=== PATIENT | female | born 1990 | race Caucasian/White ===

== ENCOUNTER → 2023-07-20 | Outpatient (CLI) | payer BC ==
[2023-07-20 17:05] LABS: C Reactive Protein <0.30 mg/dL (0.00-0.80)
[2023-07-20 17:11] LABS: ALT 25 U/L (8-44); AST 21 U/L (13-35); Albumin 4.5 d/dL (3.8-4.9); Alkaline Phosphatase 79 U/L (41-126); BUN/Creat Ratio 9.14 Ratio (12.00-20.00); Blood Urea Nitrogen 6.4 mg/dL (9.0-27.0); Calcium 9.8 mg/dL (8.7-10.3); Carbon Dioxide 23.8 mmol/L (21.6-31.8); Chloride 104 mmol/L (96-109); Glucose 88 mg/dL (70-110); Potassium 5.5 mmol/L (3.5-5.5); Sodium 139 mmol/L (135-145); Total Bilirubin 0.4 mg/dL (0.3-1.2); Total Protein 7.5 d/dL (6.2-8.2)
[2023-07-20 17:44] LABS: DNA Double-Stranded Negative (Negative)
[2023-07-23 06:34] LABS: Methylmalonic Acid 0.19 umol/L (<0.40)
[2023-07-23 10:32] LABS: HIV-1 RNA Not detected (Not detected); HIV-1 RNA, Quant <20 Copies/mL (<20); LOG HIV Copies/mL <1.30 (<1.30)
== END | disposition home or self-care (01) ==
LOC: LABWHC1 09:19
PROVIDERS: ATTEND Psychiatry & Neurology Neurology
DX: Z00.00 Encounter for general adult medical examination without abnormal findings (principal); G35 Multiple sclerosis
CPT/HCPCS: 36415; 80053; 82607; 83036; 83921; 84207; 84425; 84443; 85652; 86038; 86140; 86160; 86162; 86225; 86618; 86780; 87536

== ENCOUNTER → 2023-07-30 | Outpatient (CLI) | payer BC ==
--- NOTE | 2023-07-30 16:06 | MR ---
EXAMINATION TYPE: MR brain wo/w con DATE OF EXAM: 07/30/2023 COMPARISON: None HISTORY: Tingling in legs, stiffness, muscle spasms CONTRAST: Performed utilizing 8 mL intravenous Gadavist gadolinium contrast. TECHNIQUE: Multiplanar, multiecho imaging on a 3.0 Shelbi magnet is performed through the brain. Stud y is performed within 24 hours of arrival to the hospital. The craniovertebral junction is normal. The pituitary is normal. Optic chiasm is visualized appears normal. Diffusion-weighted imaging is performed. No abnormal hyperintensity is present to suggest an acute i ntracranial infarct or acute ischemic change. There are scattered punctate areas of hyperintensity on T2 and Inversion Recovery weighted sequences which are non-specific but can be related to microvascular ischemic changes. Ventricles and sulci are appropriate for the patient age. Following contrast administration no abnormal enhancement is evident. IMPRESSION: 1. No acute intracranial process. Postcontrast.
== END | disposition home or self-care (01) ==
LOC: RADMRIMAIN 13:37
PROVIDERS: ATTEND Psychiatry & Neurology Neurology
DX: M62.838 Other muscle spasm (principal); R20.2 Paresthesia of skin
CPT/HCPCS: 70553; A9585

== ENCOUNTER 2023-08-27 12:46 | Emergency (ER) | payer BC ==
[2023-08-27 13:02] VITALS: BP 133/71; PULSE 95; RESP 16; TEMP 98.1
--- NOTE | 2023-08-27 13:08 | ED ---
General Adult HPI - General Chief complaint: Psychiatric Symptoms Stated complaint: Mental Health Time Seen by Provider: 08/27/23 12:52 Source: patient, RN notes reviewed Mode of arrival: ambulatory Limitations: no limitations - History of Present Illness Initial comments: Patient is a pleasant 33-year-old female presenting to the emergency department with concern for anxiety. Patient states it is been more severe over the past week. Patient took a single dose of Lexapro and that causes her to have a panic attack. Patient has not been sleeping well. Patient has not been eating well. Patient does have some mild depression. Patient does have thoughts that she does not wake up. No suicidal plan. No homicidal thoughts. No hallucinations. - Related Data Allergies Allergy/AdvReac Type Severity Reaction Status Date / Time sucralfate [From Carafate] Allergy Unknown Verified 08/27/23 12:52 Review of Systems ROS Statement: Those systems with pertinent positive or pertinent negative responses have been documented in the HPI. ROS Other: All systems not noted in ROS Statement are negative. Constitutional: Denies: fever Eyes: Denies: eye pain ENT: Denies: ear pain Respiratory: Denies: cough, dyspnea Cardiovascular: Denies: chest pain Endocrine: Denies: fatigue Gastrointestinal: Denies: abdominal pain Psychiatric: Reports: as per HPI, anxiety. Denies: auditory hallucinations, visual hallucinations, homicidal thoughts Past Medical History Past Medical History: No Reported History History of Any Multi-Drug Resistant Organisms: None Reported Past Surgical History: Cholecystectomy Past Psychological History: Anxiety Smoking Status: Never smoker Past Alcohol Use History: None Reported Past Drug Use History: None Reported General Exam Limitations: no limitations General appearance: alert, in no apparent distress Head exam: Present: normocephalic Eye exam: Present: normal appearance Neck exam: Present: normal inspection Respiratory exam: Present: normal lung sounds bilaterally Cardiovascular Exam: Present: regular rate, normal rhythm GI/Abdominal exam: Present: soft. Absent: tenderness Extremities exam: Present: normal inspection Neurological exam: Present: alert Psychiatric exam: Present: anxious Skin exam: Present: normal color Course Vital Signs 08/27/23 12:49 Temperature 98.1 F Pulse Rate 95 Respiratory 16 Rate Blood Pressure 133/71 O2 Sat by Pulse 98 Oximetry Medical Decision Making - Medical Decision Making Was pt. sent in by a medical professional or institution (, PA, ADMINISTRATION PHYSICIAN, urgent care, hospital, or [facility]...) When possible be specific @ -No Did you speak to anyone other than the patient for history (EMS, parent, family, police, friend...)? What history was obtained from this source @ -Sister's present health right history including patient. Reluctant to start her medication as prescribed to her. Did you review nursing and triage notes (agree or disagree)? Why? @ -I reviewed and agree with nursing and triage notes Were old charts reviewed (outside hosp., previous admission, EMS record, old EKG, old radiological studies, urgent care reports/EKG's, [facility] records)? Report findings @ -No old charts were reviewed Differential Diagnosis (chest pain, altered mental status, abdominal pain women, abdominal pain men, vaginal bleeding, weakness, fever, dyspnea, syncope, headache, dizziness, GI bleed, back pain, seizure, CVA, palpatations, mental health, musculoskeletal)? @ -Differential Mental Health Depression, anxiety, bipolar, psychosis, schizophrenia, borderline personality, situational depression, adjustment disorder, behavioral disorder, brain tumor, malingering, substance abuse, encephalopathy, medication reaction, dementia, hypothyroidism, degenerative neurologic disorder, lupus.... This is not meant to be all-inclusive list EKG interpreted by me (3pts min.). @ X-rays interpreted by me (1pt min.). @ -None done CT interpreted by me (1pt min.). @ -None done U/S interpreted by me (1pt. min.). @ -None done What testing was considered but not performed or refused? (CT, X-rays, U/S, labs)? Why? @ -None What meds were considered but not given or refused? Why? @ -None Did you discuss the management of the patient with other professionals (professionals i.e. , PA, ADMINISTRATION PHYSICIAN, lab, RT, psych nurse, drug abuse social worker, medical management specialist, teacher, correction officer head, human services case manager)? Give summary @ -Case discussed with mental health worker with plans for discharge Was smoking cessation discussed for >3mins.? @ -No Was critical care preformed (if so, how long)? @ -No Were there social determinants of health that impacted care today? How? (Homelessness, low income, unemployed, alcoholism, drug addiction, transportation, low edu. Level, literacy, decrease access to med. care, alf, rehab)? @ -No Was there de-escalation of care discussed even if they declined (Discuss DNR or withdrawal of care, Hospice)? DNR status @ -No What co-morbidities impacted this encounter? (DM, HTN, Smoking, COPD, CAD, Cancer, CVA, ARF, Chemo, Hep., AIDS, mental health diagnosis, sleep apnea, morbid obesity)? @ -None Was patient admitted / discharged? Hospital course, mention meds given and route, prescriptions, significant lab abnormalities, going to OR and other pertinent info. @ -Patient reevaluated. Patient and family updated. Patient will be discharged for follow-up. Undiagnosed new problem with uncertain prognosis? @ -No Drug Therapy requiring intensive monitoring for toxicity (Heparin, Nitro, Insulin, Cardizem)? @ -No Were any procedures done? @ -No Diagnosis/symptom? @ -Anxiety Acute, or Chronic, or Acute on Chronic? @ -Acute on chronic Uncomplicated (without systemic symptoms) or Complicated (systemic symptoms)? @ -default Side effects of treatment? @ -No Exacerbation, Progression, or Severe Exacerbation? @ -No Poses a threat to life or bodily function? How? (Chest pain, [place], [place], pneumonia, PE, COPD, DKA, ARF, appy, cholecystitis, CVA, Diverticulitis, Homicidal, Suicidal, threat to staff... and all critical care pts) @ -No - Lab Data Lab Results 08/27/23 Range/Units 14:27 Urine Opiates Screen Not Detected (NotDetected) Ur Oxycodone Screen Not Detected (NotDetected) Urine Methadone Screen Not Detected (NotDetected) Ur Propoxyphene Screen Not Detected (NotDetected) Ur Barbiturates Screen Not Detected (NotDetected) U Tricyclic Antidepress Not Detected (NotDetected) Ur Phencyclidine Scrn Not Detected (NotDetected) Ur Amphetamines Screen Not Detected (NotDetected) U Methamphetamines Scrn Not Detected (NotDetected) U Benzodiazepines Scrn Detected H (NotDetected) Urine Cocaine Screen Not Detected (NotDetected) U Marijuana (THC) Screen Not Detected (NotDetected) Disposition Clinical Impression: Acute anxiety Disposition: HOME SELF-CARE Condition: Stable Instructions (If sedation given, give patient instructions): Generalized Anxiety Disorder (ED) Additional Instructions: Please do follow-up with your primary care physician in the next day or 2 for recheck. Please also follow-up with mental health services as directed. Return for thoughts of self-harm, worsening symptoms or other concerns. Is patient prescribed a controlled substance at d/c from ED?: No Referrals: Ant Gutierrez MD [REFERRING] - 1-2 days Time of Disposition: 15:22
[2023-08-27 15:05] LABS: Amphetamine Screen,Urine Not Detected (NotDetected); Barbiturate Screen,Urine Not Detected (NotDetected); Benzodiazepines Screen,Urine Detected (NotDetected); Cocaine Screen,Urine Not Detected (NotDetected); Methadone Screen, Urine Not Detected (NotDetected); Opiate Screen,Urine Not Detected (NotDetected); Oxycodone Screen, Urine Not Detected (NotDetected); Phencyclidine Screen,Urine Not Detected (NotDetected); Tricyclic Antidepressant,Urine Not Detected (NotDetected); Urn Cannabinoid Scrn Not Detected (NotDetected)
[2023-08-27] MEDS ORDERED: LORazepam 1 MG TAB PO STA ×2 (15:08→15:22)
== END 2023-08-27 15:33 | disposition home or self-care (01) ==
LOC: EC 12:46
DX: F41.0 Panic disorder [episodic paroxysmal anxiety] (principal); Z86.59 Personal history of other mental and behavioral disorders; Z90.49 Acquired absence of other specified parts of digestive tract
CPT/HCPCS: 80306; 82075; 99284

== ENCOUNTER 2023-08-29 13:10 | Inpatient (IN) | payer BC ==
--- NOTE | 2023-08-29 16:09 | ED ---
Psych HPI - General Chief Complaint: Psychiatric Symptoms Stated Complaint: alt mental state Time Seen by Provider: 08/29/23 15:30 Source: patient, family, RN notes reviewed, old records reviewed Mode of arrival: ambulatory Limitations: no limitations - History of Present Illness Initial Comments: This is a 33-year-old female presents today. Patient presents today for evaluation psychiatric illness. Patient denies drugs or alcohol today. To the emergency department for psychiatric evaluation patient also admits to severe anxiety MD Complaint: suicidal ideation, feels depressed, other (Anxiety) Associated Psychiatric Symptoms: depression, suicidal ideation History of same: Yes Quality: constant Improves With: none Worsens With: none Context: significant life stressor Associated Symptoms: denies other symptoms Treatments Prior to Arrival: placed on mental health hold If Self Harm: admits thoughts of self harm - Related Data Allergies Allergy/AdvReac Type Severity Reaction Status Date / Time sucralfate [From Carafate] Allergy Unknown Verified 08/27/23 12:52 Review of Systems ROS Statement: Those systems with pertinent positive or pertinent negative responses have been documented in the HPI. ROS Other: All systems not noted in ROS Statement are negative. Past Medical History Past Medical History: No Reported History History of Any Multi-Drug Resistant Organisms: None Reported Past Surgical History: Cholecystectomy Past Psychological History: Anxiety Smoking Status: Never smoker Past Alcohol Use History: None Reported Past Drug Use History: None Reported General Exam General appearance: alert, in no apparent distress Head exam: Present: atraumatic, normocephalic, normal inspection Eye exam: Present: normal appearance, PERRL, EOMI. Absent: scleral icterus, conjunctival injection, periorbital swelling ENT exam: Present: normal exam, mucous membranes moist Neck exam: Present: normal inspection. Absent: tenderness, meningismus, lymphadenopathy Respiratory exam: Present: normal lung sounds bilaterally. Absent: respiratory distress, wheezes, rales, rhonchi, stridor Cardiovascular Exam: Present: regular rate, normal rhythm, normal heart sounds. Absent: systolic murmur, diastolic murmur, rubs, gallop, clicks GI/Abdominal exam: Present: soft, normal bowel sounds. Absent: distended, tenderness, guarding, rebound, rigid Extremities exam: Present: normal inspection, full ROM, normal capillary refill. Absent: tenderness, pedal edema, joint swelling, calf tenderness Back exam: Present: normal inspection Neurological exam: Present: alert, oriented X3, CN II-XII intact Psychiatric exam: Present: normal affect, normal mood Skin exam: Present: warm, dry, intact, normal color. Absent: rash Course Vital Signs 08/29/23 13:21 Temperature 98 F Pulse Rate 100 Respiratory 20 Rate Blood Pressure 132/102 O2 Sat by Pulse 98 Oximetry - Reevaluation(s) Reevaluation #1: 08/29/23 19:24 Medical records reviewed Reevaluation #2: 08/29/23 19:24 Medical clear for psychiatric evaluation Medical Decision Making - Medical Decision Making 33 female who was seen in [facility], patient be transferred for inpatient psychiatric evaluation and treatment - Lab Data Lab Results 08/29/23 Range/Units 17:02 Urine Opiates Screen Not Detected (NotDetected) Ur Oxycodone Screen Not Detected (NotDetected) Urine Methadone Screen Not Detected (NotDetected) Ur Propoxyphene Screen Not Detected (NotDetected) Ur Barbiturates Screen Not Detected (NotDetected) U Tricyclic Antidepress Not Detected (NotDetected) Ur Phencyclidine Scrn Not Detected (NotDetected) Ur Amphetamines Screen Not Detected (NotDetected) U Methamphetamines Scrn Not Detected (NotDetected) U Benzodiazepines Scrn Detected H (NotDetected) Urine Cocaine Screen Not Detected (NotDetected) U Marijuana (THC) Screen Not Detected (NotDetected) Disposition Clinical Impression: Acute anxiety, Depression, Suicidal ideation Disposition: TRANSFER TO PSYCH HOSP/UNIT Condition: Fair Is patient prescribed a controlled substance at d/c from ED?: No Referrals: Nonstaff,Physician [Primary Care Provider] - 1-2 days
[2023-08-29 17:39] LABS: Amphetamine Screen,Urine Not Detected (NotDetected); Barbiturate Screen,Urine Not Detected (NotDetected); Benzodiazepines Screen,Urine Detected (NotDetected); Cocaine Screen,Urine Not Detected (NotDetected); Methadone Screen, Urine Not Detected (NotDetected); Opiate Screen,Urine Not Detected (NotDetected); Oxycodone Screen, Urine Not Detected (NotDetected); Phencyclidine Screen,Urine Not Detected (NotDetected); Tricyclic Antidepressant,Urine Not Detected (NotDetected); Urn Cannabinoid Scrn Not Detected (NotDetected)
[2023-08-29] MEDS ORDERED: LORazepam 1 MG TAB PO STA (21:13)
[2023-08-29 23:06] LABS: Appearance,Urine Cloudy (Clear); Bacteria,Urine Occasional /hpf; Bilirubin,Urine Negative (Negative); Blood,Urine Negative (Negative); Color,Urine Light Yellow; Glucose,Urine (UA) Negative (Negative); Ketones,Urine Negative (Negative); Leukocyte Esterase,Urine Negative (Negative); Mucus,Urine Many /hpf; Nitrite,Urine Negative (Negative); Protein,Urine Negative (Negative); RBC,Urine 1 /hpf (0-5); Specific Gravity,Urine 1.012 (1.001-1.035); Squamous Epithelial Cell,Urine 5 /hpf (0-4); Urobilinogen,Urine <2.0 mg/dL (<2.0); WBC,Urine 2 /hpf (0-5)
[2023-08-30 00:01] LABS: Basophils # (A) 0.1 k/uL (0-0.2); Basophils % (A) 1 %; Eosinophils # (A) 0.2 k/uL (0-0.7); Eosinophils % (A) 2 %; HCT 45.4 % (34.0-46.0); HGB 15.8 gm/dL (11.4-16.0); Lymphocytes # (A) 3.3 k/uL (1.0-4.8); Lymphocytes % (A) 30 %; MCHC 34.8 g/dL (31.0-37.0); MCV 92.1 fL (80.0-100.0); Mean Platelet Volume 8.1; Monocytes # (A) 0.6 k/uL (0-1.0); Monocytes % (A) 6 %; Neutrophils # (A) 6.6 k/uL (1.3-7.7); Neutrophils % (A) 60 %; Platelet Count 334 k/uL (150-450); RBC 4.93 m/uL (3.80-5.40); RDW 12.3 % (11.5-15.5)
[2023-08-30 00:16] LABS: ALT 15 U/L (4-34); AST 19 U/L (14-36); African American GFR (CKD) >90 (>60 ml/min/1.73 sqM); Albumin 4.5 g/dL (3.5-5.0); Alkaline Phosphatase 52 U/L (38-126); Anion Gap 12 mmol/L; Blood Urea Nitrogen 6 mg/dL (7-17); Calcium 9.7 mg/dL (8.4-10.2); Carbon Dioxide 23 mmol/L (22-30); Chloride 104 mmol/L (98-107); Glucose 112 mg/dL (74-99); Non-African American GFR(CKD) >90 (>60 ml/min/1.73 sqM); Potassium 3.8 mmol/L (3.5-5.1); Sodium 139 mmol/L (137-145); Total Bilirubin 0.7 mg/dL (0.2-1.3); Total Protein 7.8 g/dL (6.3-8.2)
[2023-08-30] MEDS ORDERED: MAGNESIUM HYDROXIDE 2,400 MG/30 ML CUP PO PRN (12:59)
[2023-08-30] MEDS ORDERED: haloperidoL 5 MG TAB PO PRN (13:14)
[2023-08-30] MEDS ORDERED: LORazepam 1 MG TAB PO PRN (13:14)
[2023-08-30] MEDS ORDERED: HALOPERIDOL LACTATE 5 MG/ML 1 ML VIAL IM PRN (13:14)
--- NOTE | 2023-08-31 01:44 | P.CONS ---
History of Present Illness - Reason for Consult Consult date: 08/31/23 - History of Present Illness The patient is a 33-year-old female with a PMH of anxiety who had presented to the emergency room with complaints of worsening her anxiety and panic disorder. She was admitted to the mental health unit where she was seen and evaluated while accompanied by mental health unit FRANSICO Armenta. She reported feeling anxious and having some palpitations but denied any additional complaints at the time of interview. She denied tobacco, alcohol, or substance use. Denied experiencing chest discomfort, shortness of breath, nausea, vomiting, diaphoresis, or dizziness. Laboratory evaluation in the emergency room was reviewed with WBC count 11.0, glucose 112, UA, and unremarkable urine toxicology. Review of systems: Pertinent positives and negatives as discussed in HPI, a complete review of systems was performed and all other systems are negative. Physical examination: General: non toxic, no distress, appears at stated age, normal weight Derm: no unusual rashes/lesions, no unusual ecchymoses, warm, dry Head: atraumatic, normocephalic, symmetric Eyes: EOMI, no lid lag, anicteric sclera ENT: Nose and ears atraumatic, no thrush, no pharyngeal erythema Neck: trachea midline, supple Mouth: no lip lesion, mucus membranes moist Cardiovascular: S1S2 reg, no murmur, no edema Lungs: CTA bilateral, no rhonchi, no rales , no accessory muscle use Abdominal: soft, nontender to palpation, no guarding Ext: no gross muscle atrophy, no contractures, Neuro: No gross focal neuro deficits noted Psych: Alert, oriented, appropriate affect Assessment: Palpitations Anxiety Imaging: None performed Data Review: Laboratory evaluation in the emergency room was reviewed with WBC count 11.0, glucose 112, UA, and unremarkable urine toxicology. Plan: Check TSH levels Obtain EKG Defer management of anxiety to primary psychiatry service Thank you for allowing us to participate in the care of this patient. We will follow peripherally. Do not hesitate to contact us with questions. Someone can be reached from the [facility] hospitalist group at all hours of the day at [phone]. Past Medical History Past Medical History: GERD/Reflux Additional Past Medical History / Comment(s): tinnitis, stress fractures bilateral feet (2021, 2022), History of Any Multi-Drug Resistant Organisms: None Reported Past Surgical History: Cholecystectomy Additional Past Surgical History / Comment(s): laparoscopic cholecystectomy Past Anesthesia/Blood Transfusion Reactions: No Reported Reaction Past Psychological History: Anxiety Smoking Status: Never smoker Past Alcohol Use History: None Reported Past Drug Use History: None Reported - Past Family History Mother History Unknown: Yes Medications and Allergies Home Medications Medication Instructions Recorded Confirmed Type ALPRAZolam [Xanax] 0.25 mg PO TID PRN 08/29/23 08/30/23 History buPROPion SR [Wellbutrin SR] 100 mg PO BID 08/29/23 08/29/23 History Allergies Allergy/AdvReac Type Severity Reaction Status Date / Time sucralfate [From Carafate] Allergy Intermediate Nausea Verified 08/30/23 15:16 Physical Exam Vitals: Vital Signs Temp Pulse Pulse Resp BP BP Pulse Ox 08/30/23 13:55 98.5 F 98 17 121/77 96 08/30/23 13:42 97.9 F 99 18 117/77 97 Intake and Output 08/30/23 08/30/23 08/31/23 14:59 22:59 06:59 Other: Weight 73.845 kg Results CBC & Chem 7: 08/29/23 23:54 08/29/23 23:54
[2023-08-31] MEDS: NICOTINE 14MG/24HR PATCH TRANSDERM SCH (08:20)
--- NOTE | 2023-08-31 12:02 | P.HP ---
Psychiatric H&P - . H&P Date: 08/31/23 History & Physical: Allergies Allergy/AdvReac Type Severity Reaction Status Date / Time sucralfate [From Carafate] Allergy Intermediate Nausea Verified 08/30/23 15:16 Vital Signs Temp 97.4 F L 08/31/23 06:19 Pulse 88 08/31/23 06:19 Resp 14 08/31/23 06:19 BP 119/78 08/31/23 06:19 Pulse Ox 96 08/30/23 13:55 FiO2 Intake & Output 08/30/23 08/31/23 08/31/23 18:59 06:59 18:59 Weight 73.845 kg Laboratory Last Values WBC 11.0 k/uL (3.8-10.6) H 08/29/23 23:54 RBC 4.93 m/uL (3.80-5.40) 08/29/23 23:54 Hgb 15.8 gm/dL (11.4-16.0) 08/29/23 23:54 Hct 45.4 % (34.0-46.0) 08/29/23 23:54 MCV 92.1 fL (80.0-100.0) 08/29/23 23:54 MCH 32.0 pg (25.0-35.0) 08/29/23 23:54 MCHC 34.8 g/dL (31.0-37.0) 08/29/23 23:54 RDW 12.3 % (11.5-15.5) 08/29/23 23:54 Plt Count 334 k/uL (150-450) 08/29/23 23:54 MPV 8.1 08/29/23 23:54 Neutrophils % 60 % 08/29/23 23:54 Lymphocytes % 30 % 08/29/23 23:54 Monocytes % 6 % 08/29/23 23:54 Eosinophils % 2 % 08/29/23 23:54 Basophils % 1 % 08/29/23 23:54 Neutrophils # 6.6 k/uL (1.3-7.7) 08/29/23 23:54 Lymphocytes # 3.3 k/uL (1.0-4.8) 08/29/23 23:54 Monocytes # 0.6 k/uL (0-1.0) 08/29/23 23:54 Eosinophils # 0.2 k/uL (0-0.7) 08/29/23 23:54 Basophils # 0.1 k/uL (0-0.2) 08/29/23 23:54 Sodium 139 mmol/L (137-145) 08/29/23 23:54 Potassium 3.8 mmol/L (3.5-5.1) 08/29/23 23:54 Chloride 104 mmol/L (98-107) 08/29/23 23:54 Carbon Dioxide 23 mmol/L (22-30) 08/29/23 23:54 Anion Gap 12 mmol/L 08/29/23 23:54 BUN 6 mg/dL (7-17) L 08/29/23 23:54 Creatinine 0.55 mg/dL (0.52-1.04) 08/29/23 23:54 Est GFR (CKD-EPI)AfAm >90 (>60 ml/min/1.73 sqM) 08/29/23 23:54 Est GFR (CKD-EPI)NonAf >90 (>60 ml/min/1.73 sqM) 08/29/23 23:54 Glucose 112 mg/dL (74-99) H 08/29/23 23:54 Calcium 9.7 mg/dL (8.4-10.2) 08/29/23 23:54 Total Bilirubin 0.7 mg/dL (0.2-1.3) 08/29/23 23:54 AST 19 U/L (14-36) 08/29/23 23:54 ALT 15 U/L (4-34) 08/29/23 23:54 Alkaline Phosphatase 52 U/L (38-126) 08/29/23 23:54 Total Protein 7.8 g/dL (6.3-8.2) 08/29/23 23:54 Albumin 4.5 g/dL (3.5-5.0) 08/29/23 23:54 TSH 1.120 mIU/L (0.465-4.680) 08/29/23 23:54 Urine Color Light Yellow 08/29/23 17:02 Urine Appearance Cloudy (Clear) H 08/29/23 17:02 Urine pH 6.0 (5.0-8.0) 08/29/23 17:02 Ur Specific [place] 1.012 (1.001-1.035) 08/29/23 17:02 Urine Protein Negative (Negative) 08/29/23 17:02 Urine Glucose (UA) Negative (Negative) 08/29/23 17:02 Urine Ketones Negative (Negative) 08/29/23 17:02 Urine Blood Negative (Negative) 08/29/23 17:02 Urine Nitrite Negative (Negative) 08/29/23 17:02 Urine Bilirubin Negative (Negative) 08/29/23 17:02 Urine Urobilinogen <2.0 mg/dL (<2.0) 08/29/23 17:02 Ur Leukocyte Esterase Negative (Negative) 08/29/23 17:02 Urine RBC 1 /hpf (0-5) 08/29/23 17:02 Urine WBC 2 /hpf (0-5) 08/29/23 17:02 Ur Squamous Epith Cells 5 /hpf (0-4) H 08/29/23 17:02 Urine Bacteria Occasional /hpf (None) H 08/29/23 17:02 Urine Mucus Many /hpf (None) H 08/29/23 17:02 Urine HCG, Qual Not Detected (Not Detectd) 08/29/23 17:02 Urine Opiates Screen Not Detected (NotDetected) 08/29/23 17:02 Ur Oxycodone Screen Not Detected (NotDetected) 08/29/23 17:02 Urine Methadone Screen Not Detected (NotDetected) 08/29/23 17:02 Ur Propoxyphene Screen Not Detected (NotDetected) 08/29/23 17:02 Ur Barbiturates Screen Not Detected (NotDetected) 08/29/23 17:02 U Tricyclic Antidepress Not Detected (NotDetected) 08/29/23 17:02 Ur Phencyclidine Scrn Not Detected (NotDetected) 08/29/23 17:02 Ur Amphetamines Screen Not Detected (NotDetected) 08/29/23 17:02 U Methamphetamines Scrn Not Detected (NotDetected) 08/29/23 17:02 U Benzodiazepines Scrn Detected (NotDetected) H 08/29/23 17:02 Urine Cocaine Screen Not Detected (NotDetected) 08/29/23 17:02 U Marijuana (THC) Screen Not Detected (NotDetected) 08/29/23 17:02 SARS-CoV-2 (PCR) Not Detected (Not Detectd) 08/29/23 23:54 08/31/23 09:17 IDENTIFYING DATA: Patient is a 33 y/o female, lives with in a house. no children. 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 HPI: Patient presented to the hospital ED, with sister. As per EPS note, "Pt was in the ER on 08/27 for mental health reasons and sent home. Pt returned today d/t worsening anxiety. Pt has debilitating anxiety and unable to concentrate to work and starting to isolate from others besides some family supports. Pt has struggling with anxiety her whole life but after having gallbladder surgery in June is has increased greatly. She states that she is in a constant fight or flight. She has racing thoughts, unable to concentrate, not sleeping, not eating. "I don't want to be alone". She does not feel safe being alone. She states that the littlest things turn into catastrophic thoughts and she becomes obesessed and fixed that something is wrong or something is going to happen. Pt admits to having SI for the last 2 weeks and today she verbalized she had a plan to drive her car into the garage and by carbon monoxide poison. Pt has not been eating and has not slept in weeks. She does not state any recent traumas or triggers. She is constantly crying throughout the day and not able to control those emotions. Denies HI, hallucinations, or delusions. Denies use of etoh or drugs. Sister and were present during assessment and expressed concerns of pt going to harm herself if she is alone." Today, patient states she has not been able to get her anxiety under control, and yesterday was having suicidial thoughts, but is no longer feeling that way. she had a plan to park her car and inhale CO. Minimizing. She states that things have gotten worse since 2017, when she lost her step father, and in 2019 when she lost her mom. Hanging out with her sisters have been helpful. The anxiety she is feeling is giving her tightness in her chest and tingling in her arms. Claims to have always had anxiety, but it has been worse, and not manageable since she got her gallbladder removed in June. Patient states she hasn't been sleeping, and wanted to park her car in the garage, start it, and "go to sleep forever". Patient denies any current suicidal or homicidal ideations intent or plan. At this time patient denies any auditory or visual hallucinations. Patient denies any flight of ideas racing thoughts and increased in goal directed behavior. Patient denies using drugs, alcohol, cigarettes. PAST PSYCHIATRIC HISTORY: Patient states that she's had no prior admissions to a mental health unit. Patient has tried lexapro, and it did not work well, and caused a panic attack. Currently on Wellbutrin prescribed by primary care dr. Patient denies any previous psychiatric hospitalizations. [place]. Patient denies any history of suicide attempts in the past. PMH: as per ED note ALLERGIES: as per EMR CHEMICAL DEPENDENCY HISTORY: denies FAMILY PSYCHIATRIC/SUBSTANCE USE HISTORY: denies SOCIAL HISTORY: Patient was born in [place], [place], ,raised in [facility]. College Graduate, bachelors degree, denies legal issues Lives in a house with her , no children..Works for [employer]. MENTAL STATUS EXAM: General Appearance: Patient appears to be stated age is alert, Patient is of average stature. Long, dark hair, pulled pack into a bun. dressed in street clothes directable, and attempts to cooperate. Patient appears to have good hygiene and grooming. Behavior: Patient is seated without any agitated behavior. fairly cooperative. Speech: Patient's speech is fluent and nonpressured. Mood/Affect: Patient reports their mood is anxious, affect is congruent and constricted. Suicidality/Homicidality: Patient denies having any homicidal ideation intent or plan. Denies any suicidal ideations intent or plan Perceptions: Patient denies any visual hallucinations and denies any auditory hallucinations Though content/process: There is no evidence of any delusional thought content and thought process is linear and goal-directed. Minimizing. Memory and concentration: AOX3, grossly intact for the purposes of this session. Can spell "WORLD" backwards Judgment and insight: fair STRENGTHS/WEAKNESSES: strength is that patient is resilient. Weakness is that pa tient is impulsive INTELLECT: above average IMPRESSIONS: depressive disorder, unspecified Generalized anxiety disorder Suicidal ideations PLAN: -Patient is admitted under voluntary status to MHU for stabilization of psychiatric symptoms and safety. Patient has signed adult voluntary form and medication consent and is placed in patient's chart. -Medications : Will start patient on Effexor XR 37.5mg daily for mood/anxiety Trazadone 50mg qhs for sleep Visteral 50mg q8 hours prn, and willl monitor for side effects. - Haldol PRN for agitation/aggression -Patient was informed of the risks, benefits and side effects of the medication and patient verbally consented to taking the medications. Patient signed med consent form and was placed in chart. -Internal Medicine consult to perform medical evaluation and physical. -NRT -nonsmoker -SW on board for discharge planning. Encourage patient to participate in groups to work on coping skills. 08/31/23 11:59
[2023-08-31] MEDS: VENLAFAXINE HCL ER 37.5 MG CAP PO SCH (12:23)
[2023-08-31] MEDS: hydrOXYzine pamoate 25 MG CAP PO PRN ×2 (13:56→22:40)
[2023-08-31] MEDS: LORazepam 2 MG/ML INJ IM PRN (18:48)
[2023-08-31] MEDS ORDERED: traZODone HCL 50 MG TAB PO SCH (21:00)
[2023-09-01 05:51] VITALS: RESP 16
[2023-09-01] MEDS: VENLAFAXINE HCL ER 37.5 MG CAP PO SCH (09:09)
[2023-09-01] MEDS: NICOTINE 14MG/24HR PATCH TRANSDERM SCH (09:09)
[2023-09-01] MEDS: ONDANSETRON ODT 4 MG TAB PO PRN (09:11)
--- NOTE | 2023-09-01 09:56 | P.PN ---
Progress Note - Text Progress Note Date: 09/01/23 Interval History: Patient was seen today wandering the hallways and was agreeable to speak in the office. she claims that she was feeling fairly anxious yesterday, today is better. claims that her mood is mildly improving today. states that she is trying to go to some groups. appetite is still poor. she is endorsing some nausea and took Zofran for it which helped. She states that she had a difficult time falling asleep last night. States that she has been speaking with her . She continues to have a constricted affect. At this time denying any auditory or visual hallucinations. Denying any suicidal or homicidal ideations intent or plan. Mental status examination: General Appearance: Patient appears to be stated age is alert, Patient is of average stature. Long, dark hair, pulled pack into a bun. dressed in street clothes directable, and attempts to cooperate. Behavior: Patient is seated without any agitated behavior. fairly cooperative. Speech: Patient's speech is fluent and nonpressured. Mood/Affect: Patient reports their mood is anxious, improving mildly, affect is congruent and constricted my improving mildly. Suicidality/Homicidality: Patient denies having any homicidal ideation intent or plan. Denies any suicidal ideations intent or plan Perceptions: Patient denies any visual hallucinations and denies any auditory hallucinations Though content/process: There is no evidence of any delusional thought content and thought process is linear and goal-directed Memory and concentration: AOX3, grossly intact for the purposes of this session Judgment and insight: fair IMPRESSIONS: depressive disorder, unspecified Generalized anxiety disorder Suicidal ideations PLAN: -Patient is admitted under voluntary status to MHU for stabilization of psychiatric symptoms and safety. Patient has signed adult voluntary form and medication consent and is placed in patient's chart. -Medications : Continue Effexor XR 37.5mg daily for mood/anxiety increase Trazadone 100mg qhs for sleep Visteral 50mg q8 hours prn, and willl monitor for side effects. - Haldol PRN for agitation/aggression -NRT -nonsmoker -SW on board for discharge planning. Encourage patient to participate in groups to work on coping skills.
[2023-09-01] MEDS: hydrOXYzine pamoate 25 MG CAP PO PRN ×2 (14:29→21:38)
[2023-09-01] MEDS: ACETAMINOPHEN TAB 325 MG TAB PO PRN (17:17)
[2023-09-01] MEDS ORDERED: traZODone HCL 100 MG TAB PO SCH (21:00)
[2023-09-02] MEDS: LORazepam 2 MG/ML INJ IM PRN (05:14)
[2023-09-02] MEDS: hydrOXYzine pamoate 25 MG CAP PO PRN ×2 (08:55→21:18)
[2023-09-02] MEDS ORDERED: LORazepam 1 MG TAB PO PRN ×2 (08:59→10:05)
[2023-09-02] MEDS ORDERED: diphenhydrAMINE 50 MG CAP PO PRN (10:55)
--- NOTE | 2023-09-02 11:02 | P.PN ---
Progress Note - Text Progress Note Date: 09/02/23 Interval History: Patient was seen today wandering the hallways and was agreeable to speak in the office. Patient claims that she is going to groups. She states that she is doing a bit better today with regards for anxiety. States that the Effexor has been helping, we decided to increase today to 75 mg. She states that she feels more anxious after taking the trazodone and it did not help her with sleep. She is reporting some intolerance to it. He spoke about other alternatives and she was agreeable to try melatonin with Benadryl as needed. This morning she had elevated heart rate, received an EKG, adjusto writer operator reviewed it. states that she is trying to go to some groups. appetite is still poor. She states that she had a difficult time falling asleep last night. She continues to have a constricted affect. At this time denying any auditory or visual hallucinations. Denying any suicidal or homicidal ideations intent or plan. Mental status examination: General Appearance: Patient appears to be stated age is alert, Patient is of average stature. Long, dark hair, dressed in street clothes directable, and attempts to cooperate. Behavior: Patient is seated without any agitated behavior. fairly cooperative. Speech: Patient's speech is fluent and nonpressured. Mood/Affect: Patient reports their mood is anxious, improving mildly, affect is congruent and constricted my improving mildly. Suicidality/Homicidality: Patient denies having any homicidal ideation intent or plan. Denies any suicidal ideations intent or plan Perceptions: Patient denies any visual hallucinations and denies any auditory hallucinations Though content/process: There is no evidence of any delusional thought content and thought process is linear and goal-directed. discharge Memory and concentration: AOX3, grossly intact for the purposes of this session Judgment and insight: fair IMPRESSIONS: depressive disorder, unspecified Generalized anxiety disorder Suicidal ideations PLAN: -Patient is admitted under voluntary status to MHU for stabilization of psychiatric symptoms and safety. Patient has signed adult voluntary form and medication consent and is placed in patient's chart. -Medications : increase Effexor XR 75 mg daily for mood/anxiety, discontinue Trazadone due to intolerance and possible s/e, will replace with melatonin 5 mg scheduled daily at bedtime for sleep. Visteral 50mg q8 hours prn for anxiety. Added Benadryl 50 mg daily at bedtime when necessary for insomnia. We'll co nsider adding propranolol tomorrow if patient is still fairly anxious and having tachycardia. -Check EKG this morning due to tachycardia. - Haldol PRN for agitation/aggression -NRT -nonsmoker -SW on board for discharge planning. Encourage patient to participate in groups to work on coping skills. possible d/c -sun if patient continues to improve.
[2023-09-02] MEDS: VENLAFAXINE HCL ER 37.5 MG CAP PO SCH (11:10)
[2023-09-02] MEDS: VENLAFAXINE HCL ER 75 MG CAP PO SCH (11:24)
[2023-09-02] MEDS: MELATONIN 5 MG TABLET PO SCH (21:40)
[2023-09-03] MEDS: VENLAFAXINE HCL ER 75 MG CAP PO SCH (08:19)
[2023-09-03] MEDS: PROPRANOLOL 20 MG TAB PO SCH ×2 (10:36→21:08)
--- NOTE | 2023-09-03 11:12 | P.PN ---
Progress Note - Text Progress Note Date: 09/03/23 Interval History: Patient was seen today wandering the hallways and was agreeable to speak in the office. Patient claims that she is going to groups. She states that she is doing a bit better today with regards for anxiety, "medium anxious". Patient still has an elevated heart rate, received an EKG, remote mortgage underwriter reviewed it. Patient states appetite is "ok". She states that she slept well last night. She continues to have a constricted affect. Mildly improving. At this time denying any auditory or visual hallucinations. Denying any suicidal or homicidal ideations intent or plan. we spoke about starting propranolol today to help with elevated heart rate and also anxiety. Patient claims that she is agreeable to try this today. Mental status examination: General Appearance: Patient appears to be stated age is alert, Patient is of average stature. Long, dark hair, dressed in street clothes directable, and attempts to cooperate. Behavior: Patient is seated without any agitated behavior. fairly cooperative. Speech: Patient's speech is fluent and nonpressured. Mood/Affect: Patient reports their mood is anxious, improving mildly, affect is congruent and constricted my improving mildly. Suicidality/Homicidality: Patient denies having any homicidal ideation intent or plan. Denies any suicidal ideations intent or plan Perceptions: Patient denies any visual hallucinations and denies any auditory hallucinations Though content/process: There is no evidence of any delusional thought content and thought process is linear and goal-directed. Memory and concentration: AOX3, grossly intact for the purposes of this session Judgment and insight: fair, mildly improving. IMPRESSIONS: depressive disorder, unspecified Generalized anxiety disorder Suicidal ideations PLAN: -Patient is admitted under voluntary status to MHU for stabilization of psychiatric symptoms and safety. Patient has signed adult voluntary form and medication consent and is placed in patient's chart. -Medications : Effexor XR 75 mg daily for mood/anxiety. melatonin 5 mg scheduled daily at bedtime for sleep. Visteral 50mg q8 hours prn for anxiety, add Visteral 50mg qhs for sleep . propranolol 20mg bid for anxiety/tachycardia -vitals qshift - Haldol PRN for agitation/aggression -NRT -nonsmoker -SW on board for discharge planning. Encourage patient to participate in groups to work on coping skills. possible d/c tues if patient continues to improve.
[2023-09-03] MEDS: ACETAMINOPHEN TAB 325 MG TAB PO PRN (17:03)
[2023-09-03] MEDS ORDERED: hydrOXYzine pamoate 25 MG CAP PO SCH (21:00)
[2023-09-03] MEDS: MELATONIN 5 MG TABLET PO SCH (21:39)
[2023-09-04 06:30] VITALS: TEMP 98
[2023-09-04] MEDS: PROPRANOLOL 20 MG TAB PO SCH (08:18)
[2023-09-04] MEDS: VENLAFAXINE HCL ER 75 MG CAP PO SCH (08:18)
[2023-09-04 08:31] VITALS: BP 126/90; PULSE 118
[2023-09-04] MEDS: ONDANSETRON ODT 4 MG TAB PO PRN (09:16)
--- NOTE | 2023-09-04 12:01 | P.DS ---
Providers Date of admission: 08/30/23 12:57 Admission note was completed by sports book writer Hospital course: Patient presented to the hospital ED, with sister. As per EPS note, "Pt was in the ER on 08/27 for mental health reasons and sent home. Pt returned today d/t worsening anxiety. Pt has debilitating anxiety and unable to concentrate to work and starting to isolate from others besides some family supports. Pt has struggling with anxiety her whole life but after having gallbladder surgery in June is has increased greatly. She states that she is in a constant fight or flight. She has racing thoughts, unable to concentrate, not sleeping, not eating. "I don't want to be alone". She does not feel safe being alone. She s tates that the littlest things turn into catastrophic thoughts and she becomes obesessed and fixed that something is wrong or something is going to happen. Pt admits to having SI for the last 2 weeks and today she verbalized she had a plan to drive her car into the garage and by carbon monoxide poison. Pt has not been eating and has not slept in weeks. She does not state any recent traumas or triggers. She is constantly crying throughout the day and not able to control those emotions. Denies HI, hallucinations, or delusions. Denies use of etoh or drugs. Sister and were present during assessment and expressed concerns of pt going to harm herself if she is alone." Today, patient states she has not been able to get her anxiety under control, and yesterday was having suicidial thoughts, but is no longer feeling that way. she had a plan to park her car and inhale CO. Minimizing. She states that things have gotten worse since 2017, when she lost her step father, and in 2019 when she lost her mom. Hanging out with her sisters have been helpful. The anxiety she is feeling is giving her tightness in her chest and tingling in her arms. Claims to have always had anxiety, but it has been worse, and not manageable since she got her gallbladder removed in June. Patient states she hasn't been sleeping, and wanted to park her car in the garage, start it, and "go to sleep forever". Patient denies any current suicidal or homicidal ideations intent or plan. At this time patient denies any auditory or visual hallucinations. Patient denies any flight of ideas racing thoughts and increased in goal directed behavior. Patient denies using drugs, alcohol, cigarettes. Mental status exam: General Appearance: Patient appears to be stated age is alert, Patient is of average stature. Long, dark hair, pulled pack into a bun. dressed in street clothes directable, and attempts to cooperate. Patient appears to have good hygiene and grooming. Behavior: Patient is calmly seated without any agitated behavior. Speech: Patient's speech is fluent and nonpressured. Mood/Affect: Patient reports their mood is anxious, affect is congruent and constricted. improving Suicidality/Homicidality: Patient denies having any suicidal or homicidal ideation intent or plan. Perceptions: Patient denies any auditory or visual hallucinations. Though content/process: There is no evidence of any delusional thought content and thought process is linear and goal-directed. [more future oriented] Memory and concentration: AOX3, grossly intact for the purposes of this session. Can spell "WORLD" backwards correctly. Judgment and insight: fair Impression: depressive disorder, unspecified Generalized anxiety disorder Suicidal ideations Plan: -Continue with discharge today as patient has improved and stabilized psychiatrically and is not currently an imminent threat to [himself] and/or others. [Patient will remain at chronically elevated risk for harm to self and/or others due to his impulsivity and polysubstance abuse.] -Continue medications: Effexor XR 75 mg daily for mood/anxiety. melatonin 5 mg scheduled daily at bedtime for sleep. Visteral 50mg q8 hours prn for anxiety, add Visteral 50mg qhs for sleep . propranolol 20mg bid for anxiety/tachycardia -Patient was counseled on the need for medication compliance and appropriate follow-up at mental health and also primary care for medical issues. Patient verbalized understanding and agreed. -Social work to [arrange for and conduct family meeting to ensure safety upon discharge and answer any questions/concerns.] Social work also to arrange for patients follow up appointments [with [facility]] for psychiatric care along with follow up with primary care provider. -Patient counseled on abstaining from recreational drugs and marijuana and alcohol. Was informed/educated on the adverse effects on their physical and mental health. [Patient verbally agreed and understood]. [Patient was offered substance abuse treatment however declined at this time.] -Patient was instructed to return to the hospital or seek immediate medical care if their psychiatric or medical symptoms do worsen or reoccur. Allergies Allergy/AdvReac Type Severity Reaction Status Date / Time sucralfate [From Carafate] Allergy Intermediate Nausea Verified 08/30/23 15:16 Laboratory Results WBC 11.0 k/uL (3.8-10.6) H 08/29/23 23:54 RBC 4.93 m/uL (3.80-5.40) 08/29/23 23:54 Hgb 15.8 gm/dL (11.4-16.0) 08/29/23 23:54 Hct 45.4 % (34.0-46.0) 08/29/23 23:54 MCV 92.1 fL (80.0-100.0) 08/29/23 23:54 MCH 32.0 pg (25.0-35.0) 08/29/23 23:54 MCHC 34.8 g/dL (31.0-37.0) 08/29/23 23:54 RDW 12.3 % (11.5-15.5) 08/29/23 23:54 Plt Count 334 k/uL (150-450) 08/29/23 23:54 MPV 8.1 08/29/23 23:54 Neutrophils % 60 % 08/29/23 23:54 Lymphocytes % 30 % 08/29/23 23:54 Monocytes % 6 % 08/29/23 23:54 Eosinophils % 2 % 08/29/23 23:54 Basophils % 1 % 08/29/23 23:54 Neutrophils # 6.6 k/uL (1.3-7.7) 08/29/23 23:54 Lymphocytes # 3.3 k/uL (1.0-4.8) 08/29/23 23:54 Monocytes # 0.6 k/uL (0-1.0) 08/29/23 23:54 Eosinophils # 0.2 k/uL (0-0.7) 08/29/23 23:54 Basophils # 0.1 k/uL (0-0.2) 08/29/23 23:54 Sodium 139 mmol/L (137-145) 08/29/23 23:54 Potassium 3.8 mmol/L (3.5-5.1) 08/29/23 23:54 Chloride 104 mmol/L (98-107) 08/29/23 23:54 Carbon Dioxide 23 mmol/L (22-30) 08/29/23 23:54 Anion Gap 12 mmol/L 08/29/23 23:54 BUN 6 mg/dL (7-17) L 08/29/23 23:54 Creatinine 0.55 mg/dL (0.52-1.04) 08/29/23 23:54 Est GFR (CKD-EPI)AfAm >90 (>60 ml/min/1.73 sqM) 08/29/23 23:54 Est GFR (CKD-EPI)NonAf >90 (>60 ml/min/1.73 sqM) 08/29/23 23:54 Glucose 112 mg/dL (74-99) H 08/29/23 23:54 Calcium 9.7 mg/dL (8.4-10.2) 08/29/23 23:54 Total Bilirubin 0.7 mg/dL (0.2-1.3) 08/29/23 23:54 AST 19 U/L (14-36) 08/29/23 23:54 ALT 15 U/L (4-34) 08/29/23 23:54 Alkaline Phosphatase 52 U/L (38-126) 08/29/23 23:54 Total Protein 7.8 g/dL (6.3-8.2) 08/29/23 23:54 Albumin 4.5 g/dL (3.5-5.0) 08/29/23 23:54 TSH 1.120 mIU/L (0.465-4.680) 08/29/23 23:54 Urine Color Light Yellow 08/29/23 17:02 Urine Appearance Cloudy (Clear) H 08/29/23 17:02 Urine pH 6.0 (5.0-8.0) 08/29/23 17:02 Ur Specific Mobile 1.012 (1.001-1.035) 08/29/23 17:02 Urine Protein Negative (Negative) 08/29/23 17:02 Urine Glucose (UA) Negative (Negative) 08/29/23 17:02 Urine Ketones Negative (Negative) 08/29/23 17:02 Urine Blood Negative (Negative) 08/29/23 17:02 Urine Nitrite Negative (Negative) 08/29/23 17:02 Urine Bilirubin Negative (Negative) 08/29/23 17:02 Urine Urobilinogen <2.0 mg/dL (<2.0) 08/29/23 17:02 Ur Leukocyte Esterase Negative (Negative) 08/29/23 17:02 Urine RBC 1 /hpf (0-5) 08/29/23 17:02 Urine WBC 2 /hpf (0-5) 08/29/23 17:02 Ur Squamous Epith Cells 5 /hpf (0-4) H 08/29/23 17:02 Urine Bacteria Occasional /hpf (None) H 08/29/23 17:02 Urine Mucus Many /hpf (None) H 08/29/23 17:02 Urine HCG, Qual Not Detected (Not Detectd) 08/29/23 17:02 Urine Opiates Screen Not Detected (NotDetected) 08/29/23 17:02 Ur Oxycodone Screen Not Detected (NotDetected) 08/29/23 17:02 Urine Methadone Screen Not Detected (NotDetected) 08/29/23 17:02 Ur Propoxyphene Screen Not Detected (NotDetected) 08/29/23 17:02 Ur Barbiturates Screen Not Detected (NotDetected) 08/29/23 17:02 U Tricyclic Antidepress Not Detected (NotDetected) 08/29/23 17:02 Ur Phencyclidine Scrn Not Detected (NotDetected) 08/29/23 17:02 Ur Amphetamines Screen Not Detected (NotDetected) 08/29/23 17:02 U Methamphetamines Scrn Not Detected (NotDetected) 08/29/23 17:02 U Benzodiazepines Scrn Detected (NotDetected) H 08/29/23 17:02 Urine Cocaine Screen Not Detected (NotDetected) 08/29/23 17:02 U Marijuana (THC) Screen Not Detected (NotDetected) 08/29/23 17:02 SARS-CoV-2 (PCR) Not Detected (Not Detectd) 08/29/23 23:54 Vital Signs Temp 98.0 F 09/04/23 06:19 Pulse 118 H 09/04/23 08:19 Resp 16 09/04/23 06:19 BP 126/90 09/04/23 08:19 Pulse Ox 100 09/03/23 21:10 FiO2 Expected date of discharge: 09/04/23 Attending physician: Blas Jon MD Consults: 08/30/23 12:59 Consult Physician Routine Consulting Provider: [facility] Consult Reason/Comments: H&P Do you want consulting provider notified?: Yes Primary care physician: Physician Nonstaff - Discharge Diagnosis(es) (1) Depressive disorder Current Visit: Yes Status: Acute Priority: High (2) Generalized anxiety disorder Current Visit: Yes Status: Acute Priority: High (3) Suicidal ideations Current Visit: Yes Status: Acute Priority: Medium Hospital Course: Admission HPI: Admission note was completed by sports book writer " Patient is a 33 y/o female, lives with in a house. no children. 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 Patient presented to the hospital ED, with sister. As per EPS note, "Pt was in the ER on 08/27 for mental health reasons and sent home. Pt returned today d/t worsening anxiety. Pt has debilitating anxiety and unable to concentrate to work and starting to isolate from others besides some family supports. Pt has struggling with anxiety her whole life but after having gallbladder surgery in June is has increased greatly. She states that she is in a constant fight or flight. She has racing thoughts, unable to concentrate, not sleeping, not eating. "I don't want to be alone". She does not feel safe being alone. She states that the littlest things turn into catastrophic thoughts and she becomes obesessed and fixed that something is w valerio or something is going to happen. Pt admits to having SI for the last 2 weeks and today she verbalized she had a plan to drive her car into the garage and by carbon monoxide poison. Pt has not been eating and has not slept in weeks. She does not state any recent traumas or triggers. She is constantly crying throughout the day and not able to control those emotions. Denies HI, hallucinations, or delusions. Denies use of etoh or drugs. Sister and were present during assessment and expressed concerns of pt going to harm herself if she is alone."Today, patient states she has not been able to get her anxiety under control, and yesterday was having suicidial thoughts, but is no longer feeling that way. she had a plan to park her car and inhale CO. Minimizing. She states that things have gotten worse since 2018, when she lost her step father, and in 2019 when she lost her mom. Hanging out with her sisters have been helpful. The anxiety she is feeling is giving her tightness in her chest and tingling in her arms. Claims to have always had anxiety, but it has been worse, and not manageable since she got her gallbladder removed in June. Patient states she hasn't been sleeping, and wanted to park her car in the garage, start it, and "go to sleep forever". Patient denies any current suicidal or homicidal ideations intent or plan. At this time patient denies any auditory or visual hallucinations. Patient denies any flight of ideas racing thoughts and increased in goal directed behavior. Patient denies using drugs, alcohol, cigarettes. " Hospital course: Upon admission to the unit patient was directable and agreeable to commence treatment and signed adult voluntary form. Patient was initially fairly anxious while on the unit however with time in treatment got along well with other patients on the unit and followed unit protocol. Patient was compliant with the medications and denied any side effects throughout hospital course. Patient was started on Effexor XR and increased the dose of 75 mg daily for mood/anxiety, melatonin increased her dose of 10 mg daily at bedtime for sleep, Vistaril when necessary plus scheduled dose of 50 mg daily at bedtime for anxiety/sleep, propranolol increased to a dose of 30 mg twice a day for anxiety/tachycardia.. Patient spoke of her stressors and engaged in therapy both group and individual. Patient was also seen by medical team for history and physical exam. Patient had 2 EKGs completed while on the unit given patients episodes of tachycardia and high levels of anxiety. Throughout the course of the hospitalization patient gradually improved with regards to mood, anxiety, sleep and returned back to their baseline level of functioning. On the day of discharge patient denied any suicidal or homicidal ideations intent or plan denied any auditory or visual hallucinations. Patient endorsed wanting to live for her family and her future. The patient denied any access to guns or weapons. Patient denied any paranoia and did not endorse any delusions. Patient does not have a significant history of substance abuse and was counseled on abstaining from all substances including alcohol and marijuana. Patient was also counseled on the medications and need for regular compliance and was encouraged to follow-up with their outpatient appointment for mental health and also for primary care. Prior to discharge a family meeting will be arranged by social science manager to answer any questions and ensure safety upon discharge. She will be returning back to her and her 's home today. Mental status exam: General Appearance: Patient appears to be stated age is alert, pleasant, and cooperative. Patient is in no acute distress and has improved hygiene and grooming Behavior: Patient is calmly seated without any agitated behavior. Speech: Patient's speech is fluent and nonpressured. Mood/Affect: Patient reports their mood is "good", affect is congruent and euthymic. Suicidality/Homicidality: Patient denies having any suicidal or homicidal ideation intent or plan. Perceptions: Patient denies any auditory or visual hallucinations. Though content/process: There is no evidence of any delusional thought content and thought process is linear and goal-directed. more future oriented Memory and concentration: AOX3, grossly intact for the purposes of this session. Can spell "WORLD" backwards correctly. Judgment and insight: improved with guarded prognosis Impression: Depressive disorder unspecified. Generalized anxiety disorder Suicidal ideations Plan: -Continue with discharge today as patient has improved and stabilized psychiatrically and is not currently an imminent threat to herself and/or others. -Continue medications: Effexor XR 75 mg daily for mood/anxiety, melatonin 10 mg daily at bedtime for sleep, Vistaril 50 mg daily at bedtime scheduled for anxiety/insomnia. Propranolol 30 mg twice a day for anxiety/tachycardia and BP. will give 3 day supply of Ativan 1 mg daily when necessary for anxiety. -Patient was counseled on the need for medication compliance and appropriate follow-up at mental health and also primary care for medical issues. Patient verbalized understanding and agreed. -Social work to arrange for and conduct family meeting to ensure safety upon discharge and answer any questions/concerns. Social work also to arrange for patients follow up appointments for psychiatric care along with follow up with primary care provider. -Patient counseled on abstaining from recreational drugs and marijuana and alcohol. Was informed/educated on the adverse effects on their physical and mental health. Patient verbally agreed and understood. -Patient was instructed to return to the hospital or seek immediate medical care if their psychiatric or medical symptoms do worsen or reoccur. Allergies Allergy/AdvReac Type Severity Reaction Status Date / Time sucralfate [From Carafate] Allergy Intermediate Nausea Verified 08/30/23 15:16 Laboratory Results WBC 11.0 k/uL (3.8-10.6) H 08/29/23 23:54 RBC 4.93 m/uL (3.80-5.40) 08/29/23 23:54 Hgb 15.8 gm/dL (11.4-16.0) 08/29/23 23:54 Hct 45.4 % (34.0-46.0) 08/29/23 23:54 MCV 92.1 fL (80.0-100.0) 08/29/23 23:54 MCH 32.0 pg (25.0-35.0) 08/29/23 23:54 MCHC 34.8 g/dL (31.0-37.0) 08/29/23 23:54 RDW 12.3 % (11.5-15.5) 08/29/23 23:54 Plt Count 334 k/uL (150-450) 08/29/23 23:54 MPV 8.1 08/29/23 23:54 Neutrophils % 60 % 08/29/23 23:54 Lymphocytes % 30 % 08/29/23 23:54 Monocytes % 6 % 08/29/23 23:54 Eosinophils % 2 % 08/29/23 23:54 Basophils % 1 % 08/29/23 23:54 Neutrophils # 6.6 k/uL (1.3-7.7) 08/29/23 23:54 Lymphocytes # 3.3 k/uL (1.0-4.8) 08/29/23 23:54 Monocytes # 0.6 k/uL (0-1.0) 08/29/23 23:54 Eosinophils # 0.2 k/uL (0-0.7) 08/29/23 23:54 Basophils # 0.1 k/uL (0-0.2) 08/29/23 23:54 Sodium 139 mmol/L (137-145) 08/29/23 23:54 Potassium 3.8 mmol/L (3.5-5.1) 08/29/23 23:54 Chloride 104 mmol/L (98-107) 08/29/23 23:54 Carbon Dioxide 23 mmol/L (22-30) 08/29/23 23:54 Anion Gap 12 mmol/L 08/29/23 23:54 BUN 6 mg/dL (7-17) L 08/29/23 23:54 Creatinine 0.55 mg/dL (0.52-1.04) 08/29/23 23:54 Est GFR (CKD-EPI)AfAm >90 (>60 ml/min/1.73 sqM) 08/29/23 23:54 Est GFR (CKD-EPI)NonAf >90 (>60 ml/min/1.73 sqM) 08/29/23 23:54 Glucose 112 mg/dL (74-99) H 08/29/23 23:54 Calcium 9.7 mg/dL (8.4-10.2) 08/29/23 23:54 Total Bilirubin 0.7 mg/dL (0.2-1.3) 08/29/23 23:54 AST 19 U/L (14-36) 08/29/23 23:54 ALT 15 U/L (4-34) 08/29/23 23:54 Alkaline Phosphatase 52 U/L (38-126) 08/29/23 23:54 Total Protein 7.8 g/dL (6.3-8.2) 08/29/23 23:54 Albumin 4.5 g/dL (3.5-5.0) 08/29/23 23:54 TSH 1.120 mIU/L (0.465-4.680) 08/29/23 23:54 Urine Color Light Yellow 08/29/23 17:02 Urine Appearance Cloudy (Clear) H 08/29/23 17:02 Urine pH 6.0 (5.0-8.0) 08/29/23 17:02 Ur Specific Mobile 1.012 (1.001-1.035) 08/29/23 17:02 Urine Protein Negative (Negative) 08/29/23 17:02 Urine Glucose (UA) Negative (Negative) 08/29/23 17:02 Urine Ketones Negative (Negative) 08/29/23 17: Urine Blood Negative (Negative) 08/29/23 17:02 Urine Nitrite Negative (Negative) 08/29/23 17:02 Urine Bilirubin Negative (Negative) 08/29/23 17:02 Urine Urobilinogen <2.0 mg/dL (<2.0) 08/29/23 17:02 Ur Leukocyte Esterase Negative (Negative) 08/29/23 17:02 Urine RBC 1 /hpf (0-5) 08/29/23 17:02 Urine WBC 2 /hpf (0-5) 08/29/23 17:02 Ur Squamous Epith Cells 5 /hpf (0-4) H 08/29/23 17:02 Urine Bacteria Occasional /hpf (None) H 08/29/23 17:02 Urine Mucus Many /hpf (None) H 08/29/23 17:02 Urine HCG, Qual Not Detected (Not Detectd) 08/29/23 17:02 Urine Opiates Screen Not Detected (NotDetected) 08/29/23 17:02 Ur Oxycodone Screen Not Detected (NotDetected) 08/29/23 17:02 Urine Methadone Screen Not Detected (NotDetected) 08/29/23 17:02 Ur Propoxyphene Screen Not Detected (NotDetected) 08/29/23 17:02 Ur Barbiturates Screen Not Detected (NotDetected) 08/29/23 17:02 U Tricyclic Antidepress Not Detected (NotDetected) 08/29/23 17:02 Ur Phencyclidine Scrn Not Detected (NotDetected) 08/29/23 17:02 Ur Amphetamines Screen Not Detected (NotDetected) 08/29/23 17:02 U Methamphetamines Scrn Not Detected (NotDetected) 08/29/23 17:02 U Benzodiazepines Scrn Detected (NotDetected) H 08/29/23 17:02 Urine Cocaine Screen Not Detected (NotDetected) 08/29/23 17:02 U Marijuana (THC) Screen Not Detected (NotDetected) 08/29/23 17:02 SARS-CoV-2 (PCR) Not Detected (Not Detectd) 08/29/23 23:54 Vital Signs Temp 98.0 F 09/04/23 06:19 Pulse 118 H 09/04/23 08:19 Resp 16 09/04/23 06:19 BP 126/90 09/04/23 08:19 Pulse Ox 100 09/03/23 21:10 FiO2 Patient Condition at Discharge: Stable Plan - Discharge Summary Discharge Rx Participant: No New Discharge Prescriptions: New Venlafaxine HCl ER [Effexor XR] 75 mg PO DAILY 30 Days #30 cap Propranolol [Inderal] 30 mg PO BID 30 Days #180 tab LORazepam [Ativan] 1 mg PO DAILY PRN 3 Days #3 tab PRN Reason: Anxiety Melatonin 5 mg PO HS 30 Days #60 tab hydrOXYzine pamoate [Vistaril] 50 mg PO HS 30 Days #60 cap Discontinued buPROPion SR [Wellbutrin SR] 100 mg PO BID ALPRAZolam [Xanax] 0.25 mg PO TID PRN PRN Reason: Anxiety/Panic Discharge Medication List LORazepam [Ativan] 1 mg PO DAILY PRN 3 Days #3 tab 09/04/23 [Rx] Melatonin 5 mg PO HS 30 Days #60 tab 09/04/23 [Rx] Propranolol [Inderal] 30 mg PO BID 30 Days #180 tab 09/04/23 [Rx] Venlafaxine HCl ER [Effexor XR] 75 mg PO DAILY 30 Days #30 cap 09/04/23 [Rx] hydrOXYzine pamoate [Vistaril] 50 mg PO HS 30 Days #60 cap 09/04/23 [Rx] Follow up Appointment(s)/Referral(s): [facility] [Other] - 09/11/23 9:00 am Nonstaff,Physician [Primary Care Provider] - 1-2 days Activity/Diet/Wound Care/Special Instructions: Avoid the use of street drugs and alcohol. Take all medications as prescribed. When you are in need of refills on your medications, please contact your medical provider and/or outpatient psychiatrist/provider to have this done. Please go to your scheduled outpatient appointment for aftercare treatment. If symptoms return or become worse, call the crisis line at and/or go to the nearest emergency room for evaluation. National Suicide Hotline 988. Discharge Disposition: HOME SELF-CARE
[2023-09-04] MEDS ORDERED: MELATONIN 5 MG TABLET PO SCH (21:00)
[2023-09-04] MEDS ORDERED: PROPRANOLOL 10 MG TAB PO SCH (21:00)
== END 2023-09-04 12:41 | disposition home or self-care (01) | DRG 880 ==
LOC: EC 13:10 → 3MHU 08-30 12:57
PROVIDERS: ADMIT Psychiatry & Neurology Psychiatry; ATTEND Psychiatry & Neurology Psychiatry
DX: F41.1 Generalized anxiety disorder (principal); R45.851 Suicidal ideations; F32.A Depression, unspecified; K21.9 Gastro-esophageal reflux disease without esophagitis; F41.0 Panic disorder [episodic paroxysmal anxiety]; Z11.52 Encounter for screening for COVID-19; Z88.8 Allergy status to other drugs, medicaments and biological substances; Z87.312 Personal history of (healed) stress fracture; Z79.899 Other long term (current) drug therapy
CPT/HCPCS: 36415; 80053; 80306; 81001; 81025; 82075; 84443; 85025; 87635; 93005; 99285